=== PATIENT | female | born 1980 | race Caucasian/White ===

== ENCOUNTER 2022-06-07 07:38 | Emergency (ER) | payer BC ==
[2022-06-07] MEDS ORDERED: Ondansetron 4 MG/2 ML SDV IVPUSH ONE (08:09)
[2022-06-07] MEDS ORDERED: Famotidine 20 MG/2 ML SDV IVPUSH ONE (08:09)
[2022-06-07] MEDS ORDERED: Sodium Chloride 0.9% 10 ML Syringe FLUSH PRN (08:10)
[2022-06-07] MEDS ORDERED: Pantoprazole 40 MG Vial IVPUSH ONE (08:10)
[2022-06-07] MEDS ORDERED: Sodium Chloride 0.9% 1,000 ML IV SCH (08:15)
[2022-06-07] MEDS ORDERED: HYDROmorphone 0.5 MG/0.5 ML Syringe IVPUSH ONE (08:59)
== END 2022-06-07 11:00 | disposition home or self-care (01) ==
LOC: MERGE 07:38 → JD.ED 07:38
DX: K62.5 Hemorrhage of anus and rectum (principal); R10.84 Generalized abdominal pain; I10 Essential (primary) hypertension; F17.210 Nicotine dependence, cigarettes, uncomplicated
CPT/HCPCS: 36415; 74019; 80053; 85025; 85610; 86140; 96361; 96374; 96375; 99284; C9113; J1170; J2405; J3490; J7030

== ENCOUNTER 2023-05-21 13:25 | Emergency (ER) | payer BC ==
[2023-05-21] MEDS ORDERED: Orphenadrine 60 MG/2 ML Inj IV ONE (13:56)
[2023-05-21] MEDS ORDERED: Ketorolac 30 MG/ML SDV IVPUSH ONE (13:56)
[2023-05-21] MEDS ORDERED: Triamcinolone Acetonide 40 MG/ML 1 ML SDV INJECT ONE (13:57)
== END 2023-05-21 15:02 | disposition home or self-care (01) ==
LOC: JD.ED 13:25
DX: M54.31 Sciatica, right side (principal); I10 Essential (primary) hypertension; F17.210 Nicotine dependence, cigarettes, uncomplicated; Z79.899 Other long term (current) drug therapy
CPT/HCPCS: 96374; 96375; 99283; J1885; J2360; J3301